=== PATIENT | male | born 1990 | race Caucasian/White ===

== ENCOUNTER 2023-01-23 18:39 | Inpatient (IN) | payer BC ==
[~2023-01-23] VITALS: Ht 182.9 cm; Wt 77.1 kg
[2023-01-23 18:48] VITALS: PULSE 111; RESP 22; TEMP 99.2; O2SAT 98
[2023-01-23] MEDS ORDERED: KETOROLAC TROMETHAMINE 30 MG VIAL IVP ONE (19:15)
[2023-01-23] MEDS ORDERED: NACL 0.9% 1,000 ML IV ONE (19:15)
[2023-01-23] MEDS ORDERED: MORPHINE 4 MG INJ. 4 MG/ML VIAL IVP ONE ×2 (19:15→20:15)
[2023-01-23] MEDS ORDERED: ONDANSETRON HCL 4 MG/2 ML VIAL IVP ONE ×2 (19:15→21:45)
[2023-01-23] MEDS ORDERED: PANTOPRAZOLE SODIUM 40 MG/VIAL (PROTONIX) IVP ONE (19:45)
[2023-01-23] MEDS ORDERED: ACETAMINOPHEN 325 MG TABLET PO ONE (20:00)
[2023-01-23 20:46] LABS: HEMATOCRIT 34.5 % (36-54); HEMOGLOBIN 11.3 g/dL (14.0-18.0); MEAN CORPUSCULAR HEMOGLOBIN 27 pg (27-31); MEAN CORPUSCULAR HGB CONC 33 % (32-36); MEAN CORPUSCULAR VOLUME 83 fL (79.0-98.0); PLATELET COUNT (AUTO) 196 K/uL (130-430); RED BLOOD CELL COUNT(AUTO) 4.14 MIL/uL (4.2-6.2); RED CELL DISTRIBUTION WIDTH 12.6 % (9.0-15.0); WHITE BLOOD COUNT (AUTO) 10.2 K/uL (4.8-10.8)
[2023-01-23 21:09] LABS: ALANINE AMINOTRANSFERASE 6 U/L (12-78); ALBUMIN 2.9 g/dL (3.4-4.8); ANION GAP 9 (5-15); ASPARTATE AMINOTRANSFERASE 9 U/L (10-37); CALCIUM 7.9 mg/dL (8.4-11.0); CARBON DIOXIDE 28 mmol/L (23-29); CHLORIDE 99 mmol/L (98-107); GFR AFRICAN AMERICAN 144 mL/min (>90); GLUCOSE 98 mg/dL (74-106); SODIUM SERUM 136 mmol/L (136-145); TOTAL BILIRUBIN 0.8 mg/dL (0.0-1.0); TOTAL PROTEIN, SERUM 6.9 g/dL (6.4-8.3); UREA NITROGEN, BLOOD 8 mg/dL (8-21)
[2023-01-23 21:10] LABS: GFR NON AFRICAN-AMERICAN 119 mL/min (>90)
[2023-01-23 21:13] LABS: POTASSIUM 2.9 mmol/L (3.5-5.1)
[2023-01-23] MEDS ORDERED: HYDROmorphone 1 MG/ML INJ. CARTRIDGE IVP ONE (21:45)
[2023-01-23] MEDS ORDERED: KCL 40 mEq in D5W 1000 mL 1,000 ML IV ONE (22:15)
[2023-01-23] MEDS ORDERED: KCL 20 mEq in 100 mL (PREMIX) 200 ML IV ONE (22:17)
[2023-01-23] MEDS ORDERED: cefTRIAXone 1 GM in D5W 50 ML IV ONE (22:30)
[2023-01-23] MEDS ORDERED: DICYCLOMINE HCL 20 MG/2 ML AMP IM ONE (22:45)
[2023-01-23] MEDS ORDERED: cefTRIAXone 1 GM VIAL ONE (22:49)
[2023-01-23 22:52] LABS: BAND % (MANUAL) 30 % (0-6); BASOPHILS % (MANUAL) 0 % (0-2); EOSINOPHILS % (MANUAL) 3 % (0-7); LYMPHOCYTES % (MANUAL) 5 % (20-46); MONOCYTES % (MANUAL) 7 % (0-11); OVALOCYTES FEW; PLATELET ESTIMATE ADEQUATE (ADEQUATE); TEAR DROP CELLS FEW
[2023-01-23] MEDS ORDERED: DICYCLOMINE HCL 10 MG CAPSULE PO ONE (23:00)
[2023-01-23] MEDS ORDERED: DICYCLOMINE HCL 10 MG/5 ML SOLUTION ONE (23:07)
[2023-01-23] MEDS ORDERED: DICYCLOMINE HCL 10 MG/5 ML SOLUTION PO ONE (23:15)
[2023-01-24] VITALS (7 sets, daily range): BP systolic 96–132; PULSE 104–124; RESP 16–20; TEMP 98.2–99.2; O2SAT 96–100
[2023-01-24] MEDS: LR 1,000 ML IV SCH ×4 (04:38→20:51)
[2023-01-24] MEDS: MORPHINE 4 MG INJ. 4 MG/ML VIAL IVP PRN ×2 (04:52→20:27)
[2023-01-24] MEDS ORDERED: POTASSIUM CHLORIDE 20 MEQ TAB.PRT.SR PO ONE (08:00)
[2023-01-24] MEDS: metroNIDAZOLE 500 mg/NS 100 ML IV SCH ×3 (08:14→22:46)
[2023-01-24] MEDS: CIPROFLOXACIN LACT 400 MG/D5W 200 ML IV SCH ×2 (08:20→20:51)
[2023-01-24] MEDS: ACETAMINOPHEN 325 MG TABLET PO PRN ×2 (08:24→13:12)
[2023-01-24] MEDS: traMADol HCL HCL 50 MG TABLET (ULTRAM) PO PRN ×2 (10:04→18:14)
[2023-01-24] MEDS: ONDANSETRON HCL 4 MG/2 ML VIAL IVP PRN ×3 (13:00→23:10)
[2023-01-24] MEDS: KETOROLAC TROMETHAMINE 15 MG VIAL IVP PRN (20:28)
[2023-01-24] MEDS: POTASSIUM CHLORIDE 20 MEQ TAB.PRT.SR PO SCH (20:51)
[2023-01-24] MEDS ORDERED: TEMAZEPAM 15 MG CAPSULE ONE (23:05)
[2023-01-25] MEDS: TEMAZEPAM 7.5 MG CAPSULE PO PRN (00:17)
[2023-01-25 00:33] VITALS: BP_SYST 112; PULSE 109; RESP 18; TEMP 97.9; O2SAT 96
[2023-01-25 04:54] LABS: BASOPHILS % (AUTO) 0.1 % (0.0-2.0); EOSINOPHILS % (AUTO) 0.5 % (0.0-4.0); HEMATOCRIT 35.7 % (36-54); HEMOGLOBIN 11.7 g/dL (14.0-18.0); LYMPHOCYTES # (AUTO) 0.6 K/uL (1.0-5.5); MEAN CORPUSCULAR HEMOGLOBIN 27 pg (27-31); MEAN CORPUSCULAR HGB CONC 33 % (32-36); MEAN CORPUSCULAR VOLUME 83 fL (79.0-98.0); MONOCYTES # (AUTO) 1.5 K/uL (0.0-1.0); NEUTROPHILS % (AUTO) 76.4 % (40.0-70.0); PLATELET COUNT (AUTO) 216 K/uL (130-430); RED CELL DISTRIBUTION WIDTH 12.8 % (9.0-15.0); WHITE BLOOD COUNT (AUTO) 9.2 K/uL (4.8-10.8)
[2023-01-25] MEDS: LR 1,000 ML IV SCH ×3 (05:17→15:15)
[2023-01-25] MEDS: metroNIDAZOLE 500 mg/NS 100 ML IV SCH ×3 (05:18→22:57)
[2023-01-25 05:19] LABS: INR 1.2 (0.80-1.20); PROTHROMBIN TIME 12.3 SECS (9.5-12.5)
[2023-01-25] MEDS: ONDANSETRON HCL 4 MG/2 ML VIAL IVP PRN ×3 (05:19→17:51)
[2023-01-25] MEDS: ACETAMINOPHEN 325 MG TABLET PO PRN (05:20)
[2023-01-25 05:33] LABS: ALBUMIN 2.4 g/dL (3.4-4.8); CALCIUM 8.4 mg/dL (8.4-11.0); CREATININE 0.79 mg/dL (0.55-1.30); POTASSIUM 3.9 mmol/L (3.5-5.1); TOTAL BILIRUBIN 0.8 mg/dL (0.0-1.0); TOTAL PROTEIN, SERUM 6.6 g/dL (6.4-8.3)
[2023-01-25 08:00] VITALS: BP_SYST 115; PULSE 124; RESP 18; TEMP 98.5; O2SAT 97
[2023-01-25] MEDS: CIPROFLOXACIN LACT 400 MG/D5W 200 ML IV SCH ×2 (08:41→21:42)
[2023-01-25] MEDS: POTASSIUM CHLORIDE 20 MEQ TAB.PRT.SR PO SCH (08:42)
[2023-01-25] MEDS: BISMUTH SUBSALICYLATE 240 ML BOTTLE PO PRN (08:47)
[2023-01-25 11:30] VITALS: BP_SYST 115; PULSE 112; RESP 18; TEMP 99.9; O2SAT 99
[2023-01-25] MEDS: KETOROLAC TROMETHAMINE 15 MG VIAL IVP PRN ×2 (12:09→17:51)
[2023-01-25 16:49] VITALS: BP_SYST 125; PULSE 108; RESP 18; TEMP 98.5; O2SAT 100
[2023-01-25 20:00] VITALS: BP_SYST 117; PULSE 110; RESP 18; TEMP 98.7; O2SAT 97
[2023-01-26 00:13] VITALS: BP_SYST 115; PULSE 100; RESP 18; TEMP 99.4; O2SAT 99
[2023-01-26] MEDS: TEMAZEPAM 7.5 MG CAPSULE PO PRN (00:38)
[2023-01-26] MEDS: KETOROLAC TROMETHAMINE 15 MG VIAL IVP PRN ×3 (00:39→17:52)
[2023-01-26] MEDS: ONDANSETRON HCL 4 MG/2 ML VIAL IVP PRN ×3 (00:40→15:01)
[2023-01-26] MEDS: LR 1,000 ML IV SCH ×4 (00:44→20:27)
[2023-01-26 05:30] LABS: BASOPHILS % (AUTO) 0.2 % (0.0-2.0); EOSINOPHILS # (AUTO) 0.2 K/uL (0.0-0.4); EOSINOPHILS % (AUTO) 2.5 % (0.0-4.0); HEMATOCRIT 33.3 % (36-54); HEMOGLOBIN 11.1 g/dL (14.0-18.0); LYMPHOCYTES # (AUTO) 0.6 K/uL (1.0-5.5); LYMPHOCYTES % (AUTO) 7.8 % (20.5-51.5); MEAN CORPUSCULAR HEMOGLOBIN 28 pg (27-31); MEAN CORPUSCULAR HGB CONC 33 % (32-36); MEAN CORPUSCULAR VOLUME 83 fL (79.0-98.0); MONOCYTES # (AUTO) 1.2 K/uL (0.0-1.0); MONOCYTES % (AUTO) 17.2 % (1.7-9.3); NEUTROPHILS # (AUTO) 5.2 K/uL (1.8-7.7); NEUTROPHILS % (AUTO) 72.3 % (40.0-70.0); PLATELET COUNT (AUTO) 218 K/uL (130-430); RED BLOOD CELL COUNT(AUTO) 4.02 MIL/uL (4.2-6.2); RED CELL DISTRIBUTION WIDTH 13.2 % (9.0-15.0); WHITE BLOOD COUNT (AUTO) 7.3 K/uL (4.8-10.8)
[2023-01-26 05:46] LABS: ALBUMIN 2.3 g/dL (3.4-4.8); CREATININE 0.76 mg/dL (0.55-1.30); POTASSIUM 3.3 mmol/L (3.5-5.1); TOTAL BILIRUBIN 0.4 mg/dL (0.0-1.0); TOTAL PROTEIN, SERUM 6.1 g/dL (6.4-8.3)
[2023-01-26 05:47] LABS: INR 1.2 (0.80-1.20); PROTHROMBIN TIME 12.2 SECS (9.5-12.5)
[2023-01-26] MEDS: metroNIDAZOLE 500 mg/NS 100 ML IV SCH (06:11)
[2023-01-26 08:00] VITALS: BP_SYST 120; PULSE 110; RESP 20; TEMP 100.2; O2SAT 97
[2023-01-26] MEDS: CIPROFLOXACIN LACT 400 MG/D5W 200 ML IV SCH ×2 (08:31→20:32)
[2023-01-26] MEDS: ACETAMINOPHEN 325 MG TABLET PO PRN (08:33)
[2023-01-26] MEDS ORDERED: POTASSIUM CHLORIDE 20 MEQ TAB.PRT.SR PO SCH (09:00)
[2023-01-26 10:41] VITALS: TEMP 98.3
[2023-01-26 12:25] VITALS: BP_SYST 115; PULSE 91; RESP 18; TEMP 97.3; O2SAT 99
[2023-01-26] MEDS ORDERED: COMMUNICATION ORDER XX ONE (13:30)
[2023-01-26] MEDS ORDERED: POTASSIUM CHLORIDE 20 MEQ/PKT PACKET PO ONE (13:30)
[2023-01-26 14:54] LABS: TOTAL IRON BIND. CAPACITY 139 ug/dL (250-450)
[2023-01-26] MEDS: metroNIDAZOLE 500 MG TABLET PO SCH ×2 (14:56→22:05)
[2023-01-26 16:00] VITALS: BP_SYST 121; PULSE 106; RESP 18; TEMP 99.7; O2SAT 100
[2023-01-26 20:10] VITALS: BP_SYST 107; PULSE 101; RESP 18; TEMP 97.9; O2SAT 98
[2023-01-26] MEDS: LACTOBACILLUS RHAMNOSUS GG 1 CAP CAPSULE PO SCH (22:05)
[2023-01-27] MEDS: ONDANSETRON HCL 4 MG/2 ML VIAL IVP PRN ×4 (00:03→19:15)
[2023-01-27] MEDS: KETOROLAC TROMETHAMINE 15 MG VIAL IVP PRN ×4 (00:04→19:18)
[2023-01-27] MEDS: LR 1,000 ML IV SCH ×2 (00:18→16:48)
[2023-01-27] MEDS: TEMAZEPAM 7.5 MG CAPSULE PO PRN ×3 (00:19→22:53)
[2023-01-27] MEDS: ACETAMINOPHEN 325 MG TABLET PO PRN ×2 (00:21→13:44)
[2023-01-27 00:42] VITALS: BP_SYST 119; PULSE 98; RESP 17; TEMP 99.1; O2SAT 98
[2023-01-27 05:11] LABS: BASOPHILS % (AUTO) 0.4 % (0.0-2.0); EOSINOPHILS # (AUTO) 0.2 K/uL (0.0-0.4); HEMATOCRIT 32.3 % (36-54); HEMOGLOBIN 10.6 g/dL (14.0-18.0); LYMPHOCYTES # (AUTO) 0.6 K/uL (1.0-5.5); LYMPHOCYTES % (AUTO) 8.2 % (20.5-51.5); MEAN CORPUSCULAR HEMOGLOBIN 28 pg (27-31); MEAN CORPUSCULAR HGB CONC 33 % (32-36); MEAN CORPUSCULAR VOLUME 84 fL (79.0-98.0); MONOCYTES # (AUTO) 1.2 K/uL (0.0-1.0); MONOCYTES % (AUTO) 16.2 % (1.7-9.3); NEUTROPHILS # (AUTO) 5.3 K/uL (1.8-7.7); NEUTROPHILS % (AUTO) 72.2 % (40.0-70.0); PLATELET COUNT (AUTO) 246 K/uL (130-430); RED BLOOD CELL COUNT(AUTO) 3.86 MIL/uL (4.2-6.2); RED CELL DISTRIBUTION WIDTH 13.4 % (9.0-15.0); WHITE BLOOD COUNT (AUTO) 7.3 K/uL (4.8-10.8)
[2023-01-27 05:45] LABS: ALBUMIN 2.1 g/dL (3.4-4.8); CALCIUM 8.1 mg/dL (8.4-11.0); CREATININE 0.75 mg/dL (0.55-1.30); PHOSPHORUS 3.1 mg/dL (2.7-4.5); POTASSIUM 3.5 mmol/L (3.5-5.1); TOTAL BILIRUBIN 0.4 mg/dL (0.0-1.0)
[2023-01-27] MEDS: metroNIDAZOLE 500 MG TABLET PO SCH (06:15)
[2023-01-27 08:06] LABS: FOLATE (FOLIC ACID) 13.8 ng/mL (>3.0)
[2023-01-27 08:45] VITALS: BP_SYST 119; PULSE 18; RESP 18; TEMP 99.2; O2SAT 98
[2023-01-27] MEDS: POTASSIUM CHLORIDE 20 MEQ/PKT PACKET PO SCH (09:09)
[2023-01-27] MEDS: LACTOBACILLUS RHAMNOSUS GG 1 CAP CAPSULE PO SCH ×2 (09:10→22:47)
[2023-01-27] MEDS: CIPROFLOXACIN LACT 400 MG/D5W 200 ML IV SCH ×2 (09:12→22:47)
[2023-01-27 10:45] VITALS: O2SAT 100
[2023-01-27 11:24] VITALS: BP_SYST 122; PULSE 111; RESP 17; TEMP 99; O2SAT 99
[2023-01-27] MEDS ORDERED: SOD FERRIC GLUC COMPLEX/SUC 125 MG in NS 100 ML IV SCH (13:15)
[2023-01-27] MEDS ORDERED: CHOLECALCIFEROL (VITAMIN D3) 5,000 UNIT TABLET PO ONE (13:30)
[2023-01-27] MEDS: metroNIDAZOLE 500 mg/NS 100 ML IV SCH (15:03)
[2023-01-27 16:37] VITALS: BP_SYST 124; PULSE 109; RESP 17; TEMP 99.5; O2SAT 99
[2023-01-27] MEDS: IRON SUCROSE COMPLEX 100 MG in NS 50 ML IV SCH (16:46)
[2023-01-27 20:00] VITALS: BP_SYST 120; PULSE 96; RESP 18; TEMP 99.1; O2SAT 100
[2023-01-28] VITALS (8 sets, daily range): BP systolic 114–127; PULSE 86–98; RESP 15–18; TEMP 97.2–98.8; O2SAT 97–100
[2023-01-28] MEDS: LR 1,000 ML IV SCH ×3 (00:01→23:06)
[2023-01-28] MEDS: metroNIDAZOLE 500 mg/NS 100 ML IV SCH ×4 (00:02→23:06)
[2023-01-28] MEDS: KETOROLAC TROMETHAMINE 15 MG VIAL IVP PRN ×2 (04:54→18:48)
[2023-01-28] MEDS: ONDANSETRON HCL 4 MG/2 ML VIAL IVP PRN ×2 (04:55→22:00)
[2023-01-28 05:54] LABS: ALBUMIN 2.1 g/dL (3.4-4.8); CREATININE 0.69 mg/dL (0.55-1.30); PHOSPHORUS 3.2 mg/dL (2.7-4.5); POTASSIUM 3.6 mmol/L (3.5-5.1); TOTAL BILIRUBIN 0.3 mg/dL (0.0-1.0)
[2023-01-28 07:22] LABS: BASOPHILS % (AUTO) 0.4 % (0.0-2.0); EOSINOPHILS # (AUTO) 0.3 K/uL (0.0-0.4); EOSINOPHILS % (AUTO) 4.4 % (0.0-4.0); HEMATOCRIT 32.1 % (36-54); HEMOGLOBIN 10.4 g/dL (14.0-18.0); LYMPHOCYTES # (AUTO) 0.7 K/uL (1.0-5.5); LYMPHOCYTES % (AUTO) 9.6 % (20.5-51.5); MEAN CORPUSCULAR HEMOGLOBIN 27 pg (27-31); MEAN CORPUSCULAR HGB CONC 33 % (32-36); MEAN CORPUSCULAR VOLUME 84 fL (79.0-98.0); MONOCYTES # (AUTO) 1.3 K/uL (0.0-1.0); MONOCYTES % (AUTO) 18.6 % (1.7-9.3); NEUTROPHILS # (AUTO) 4.8 K/uL (1.8-7.7); PLATELET COUNT (AUTO) 281 K/uL (130-430); RED BLOOD CELL COUNT(AUTO) 3.82 MIL/uL (4.2-6.2); RED CELL DISTRIBUTION WIDTH 13.2 % (9.0-15.0); WHITE BLOOD COUNT (AUTO) 7.2 K/uL (4.8-10.8)
[2023-01-28 07:37] LABS: RETICULOCYTE COUNT 0.7 % (0.5-1.5)
[2023-01-28] MEDS: CIPROFLOXACIN LACT 400 MG/D5W 200 ML IV SCH ×2 (08:35→21:56)
[2023-01-28] MEDS: CHOLECALCIFEROL (VITAMIN D3) 5,000 UNIT TABLET PO SCH (08:37)
[2023-01-28] MEDS: LACTOBACILLUS RHAMNOSUS GG 1 CAP CAPSULE PO SCH ×2 (08:37→21:55)
[2023-01-28] MEDS: POTASSIUM CHLORIDE 20 MEQ/PKT PACKET PO SCH (08:37)
[2023-01-28] MEDS: IRON SUCROSE COMPLEX 100 MG in NS 50 ML IV SCH (16:08)
[2023-01-28] MEDS ORDERED: BISACODYL 5 MG TABLET.DR (DULCOLAX) PO ONE (17:00)
[2023-01-28] MEDS ORDERED: POLYETHYLENE GLYCOL 3350, 17 GM/ POWD.PACK PO ONE (18:00)
[2023-01-28] MEDS ORDERED: GOLYTELY / COLYTE SOLUTION 4 LITERS PO ONE (18:00)
[2023-01-28] MEDS: MORPHINE 4 MG INJ. 4 MG/ML VIAL IVP PRN (22:01)
[2023-01-29] MEDS: ACETAMINOPHEN 325 MG TABLET PO PRN (01:51)
[2023-01-29 01:53] VITALS: BP_SYST 119; PULSE 97; RESP 18; TEMP 97.6; O2SAT 96
[2023-01-29] MEDS ORDERED: POLYETHYLENE GLYCOL 3350, 17 GM/ POWD.PACK PO ONE (03:00)
[2023-01-29] MEDS: metroNIDAZOLE 500 mg/NS 100 ML IV SCH ×3 (05:25→21:19)
[2023-01-29] MEDS ORDERED: MEPERIDINE 100 MG INJ. 100 MG/ML VIAL ONE (07:37)
[2023-01-29] MEDS ORDERED: SIMETHICONE 40 MG/0.6 ML ML ONE (07:37)
[2023-01-29] MEDS ORDERED: MIDAZOLAM HCL 5 MG/5 ML VIAL ONE ×2 (07:38→09:21)
[2023-01-29] MEDS ORDERED: ONDANSETRON HCL 4 MG/2 ML VIAL ONE (08:09)
[2023-01-29] MEDS: LR 1,000 ML IV SCH ×2 (08:27→21:18)
[2023-01-29 08:30] VITALS: BP_SYST 116; PULSE 97; RESP 16; TEMP 98.4; O2SAT 97
[2023-01-29] MEDS: LACTOBACILLUS RHAMNOSUS GG 1 CAP CAPSULE PO SCH ×2 (09:00→20:29)
[2023-01-29] MEDS: CHOLECALCIFEROL (VITAMIN D3) 5,000 UNIT TABLET PO SCH (09:00)
[2023-01-29] MEDS: POTASSIUM CHLORIDE 20 MEQ/PKT PACKET PO SCH (09:00)
[2023-01-29] MEDS ORDERED: DIPHENHYDRAMINE INJ 50 MG/ML VIAL ONE (09:18)
[2023-01-29 09:37] VITALS: O2SAT 97
[2023-01-29] MEDS ORDERED: MESALAMINE 400 MG CAPSULE.DR PO ONE (10:15)
[2023-01-29] MEDS ORDERED: METHYLPREDNISOLONE SOD SUCC 40 MG/ML VIAL IVP ONE (10:15)
[2023-01-29] MEDS: CIPROFLOXACIN LACT 400 MG/D5W 200 ML IV SCH (11:07)
[2023-01-29 11:36] VITALS: BP_SYST 111; PULSE 100; RESP 17; TEMP 98.8; O2SAT 97
[2023-01-29] MEDS: ONDANSETRON HCL 4 MG/2 ML VIAL IVP PRN ×2 (14:03→19:41)
[2023-01-29] MEDS: MESALAMINE 400 MG CAPSULE.DR PO SCH ×2 (15:34→20:29)
[2023-01-29] MEDS: IRON SUCROSE COMPLEX 100 MG in NS 50 ML IV SCH (15:52)
[2023-01-29 16:31] VITALS: BP_SYST 109; PULSE 104; RESP 17; TEMP 99.3; O2SAT 97
[2023-01-29] MEDS: BISMUTH SUBSALICYLATE 240 ML BOTTLE PO PRN (19:58)
[2023-01-29 20:00] VITALS: BP_SYST 127; PULSE 102; RESP 18; TEMP 98.6; O2SAT 98
[2023-01-29] MEDS: METHYLPREDNISOLONE SOD SUCC 40 MG/ML VIAL IVP SCH (21:19)
[2023-01-29] MEDS: TEMAZEPAM 7.5 MG CAPSULE PO PRN (23:36)
[2023-01-30 02:14] VITALS: BP_SYST 119; PULSE 98; RESP 18; TEMP 97.6; O2SAT 96
[2023-01-30] MEDS: LR 1,000 ML IV SCH ×2 (05:08→14:11)
[2023-01-30] MEDS: metroNIDAZOLE 500 mg/NS 100 ML IV SCH ×2 (05:08→13:20)
[2023-01-30 08:30] VITALS: BP_SYST 117; PULSE 87; RESP 16; TEMP 97.1; O2SAT 100
[2023-01-30] MEDS: METHYLPREDNISOLONE SOD SUCC 40 MG/ML VIAL IVP SCH (08:43)
[2023-01-30] MEDS: CHOLECALCIFEROL (VITAMIN D3) 5,000 UNIT TABLET PO SCH (08:48)
[2023-01-30] MEDS: LACTOBACILLUS RHAMNOSUS GG 1 CAP CAPSULE PO SCH (08:48)
[2023-01-30] MEDS: MESALAMINE 400 MG CAPSULE.DR PO SCH ×2 (08:48→14:41)
[2023-01-30] MEDS: POTASSIUM CHLORIDE 20 MEQ/PKT PACKET PO SCH (08:48)
[2023-01-30 10:20] VITALS: O2SAT 100
[2023-01-30] MEDS ORDERED: predniSONE 20 MG TABLET PO ONE (10:45)
[2023-01-30 12:30] VITALS: BP_SYST 115; PULSE 85; RESP 16; TEMP 97.9; O2SAT 99
[2023-01-30 13:53] VITALS: BP_SYST 117; PULSE 92; RESP 17; TEMP 97.1; O2SAT 100
[2023-01-30] MEDS: IRON SUCROSE COMPLEX 100 MG in NS 50 ML IV SCH (14:18)
[2023-01-31] MEDS ORDERED: predniSONE 20 MG TABLET PO SCH (09:00)
== END 2023-01-30 15:35 | disposition home or self-care (01) | DRG 720 ==
LOC: SED 18:39 → STU 23:22 → SMU 01-25 11:35
PROVIDERS: ADMIT Internal Medicine; ATTEND Internal Medicine
PROC: 0DBP8ZX Excision of Rectum, Via Natural or Artificial Opening Endoscopic, Diagnostic (ICD-10-PCS; 2023-01-29)
PROC: 0DBB8ZX Excision of Ileum, Via Natural or Artificial Opening Endoscopic, Diagnostic (ICD-10-PCS; 2023-01-29)
PROC: 0DBK8ZX Excision of Ascending Colon, Via Natural or Artificial Opening Endoscopic, Diagnostic (ICD-10-PCS; 2023-01-29)
PROC: 0DBN8ZX Excision of Sigmoid Colon, Via Natural or Artificial Opening Endoscopic, Diagnostic (ICD-10-PCS; 2023-01-29)
PROC: 0DBM8ZX Excision of Descending Colon, Via Natural or Artificial Opening Endoscopic, Diagnostic (ICD-10-PCS; 2023-01-29)
PROC: 0DBH8ZX Excision of Cecum, Via Natural or Artificial Opening Endoscopic, Diagnostic (ICD-10-PCS; 2023-01-29)
PROC: 0DBL8ZX Excision of Transverse Colon, Via Natural or Artificial Opening Endoscopic, Diagnostic (ICD-10-PCS; principal; 2023-01-29 10:45)
DX: A41.9 Sepsis, unspecified organism (principal); E43 Unspecified severe protein-calorie malnutrition; D62 Acute posthemorrhagic anemia; A04.9 Bacterial intestinal infection, unspecified; E87.6 Hypokalemia; Z68.23 Body mass index [BMI] 23.0-23.9, adult; G44.209 Tension-type headache, unspecified, not intractable; K51.90 Ulcerative colitis, unspecified, without complications; K21.9 Gastro-esophageal reflux disease without esophagitis; Z86.73 Personal history of transient ischemic attack (TIA), and cerebral infarction without residual deficits
CPT/HCPCS: 36415; 45380; 70450-TC; 71045; 76376; 80053; 82306; 82607; 82746; 83540; 83550; 83605; 83690; 83735; 84100; 84484; 85007; 85025; 85027; 85044; 85610-TC; 85651-TC; 85730-TC; 87040; 87045-TC; 87046; 87177; 87230-TC; 88305; 89055; 93005; 99285; C9113; G0378; J0500; J0696; J0744; J1030; J1170; J1200; J1756; J1885; J2175; J2250; J2270; J2405; J3480; J3490; J7030; J7120; J7512